=== PATIENT | male | born 1995 | race Caucasian/White ===

== ENCOUNTER 2024-07-23 16:28 | Emergency (ER) | payer BC, SELFPAY ==
[2024-07-23 16:30] VITALS: BP 151/89
[2024-07-23 18:01] VITALS: BP 143/88
[2024-07-23] MEDS: SUBLIMAZE 100 MCG IV (18:02)
[2024-07-23] MEDS: ZOFRAN 4 MG IV (18:04)
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
== END 2024-07-23 19:11 | disposition home or self-care (01) ==
LOC: EMR 16:28
PROVIDERS: EMERGENCY PHYSICIAN Emergency Medicine; FAMILY PHYSICIAN Family Medicine
DX: S63.264A Dislocation of metacarpophalangeal joint of right ring finger, initial encounter (principal); S63.266A Dislocation of metacarpophalangeal joint of right little finger, initial encounter; W22.01XA Walked into wall, initial encounter
CPT/HCPCS: 99284; 26700 ×2; 96374; 96375; 73120; 73130